=== PATIENT | female | born 1985 | race African-American/Black ===

== ENCOUNTER 2022-06-25 00:18 | Observation (INO) | payer OTHER, SELFPAY ==
--- NOTE | ~2022-06-25 | US_ITS ---
Pelvic ultrasound. Clinical History: Third trimester , evaluate for growth and amniotic fluid index Technique: Realtime transabdominal scanning of the pelvis was performed. Findings: The uterus is anteverted, and contains an intrauterine gestation. Biparietal diameter is 8. 8 cm. Head circumference is 30.5 cm. heart rate is 141 bpm. Abdominal circumference is 30.4 cm. Femur length is 6.9 cm. Amniotic fluid index is 8.5.. Neither ovary visualized. There is no evidence of free fluid in the cul de sac. Impression: Live intrauterine gestation with estimated gestational age of 34 weeks 6 days. CHRISTIANNE is 07/31/2022. heart rate is 141 bpm. Estimated weight is 2499 g. Amniotic fluid index is 8.5. Reviewed, dictated and finalized at [facility]. [employer] Impression: Live intrauterine gestation with estimated gestational age of 34 weeks 6 days. CHRISTIANNE is 07/31/2022. heart rate is 141 bpm. Estimated weight is 2499 g. Amniotic fluid index is 8.5.
[2022-06-25 00:39] VITALS: BP 136/80; PULSE 97; RESP 16; TEMP 36.3
--- NOTE | 2022-06-25 00:41 | PC.NURSE ---
Jo SEXTON notified Dr. Tomlin of PT coming in with c/o itching, orders to give Benadryl PO, CBC, CMP, and Bile acids.
[2022-06-25 00:45] VITALS: BP 131/73; PULSE 94
[2022-06-25 01:00] VITALS: BMI 34.9
[2022-06-25] MEDS: diphenhydrAMINE HCl CAP 25 MG CAPSULE PO (01:20)
--- NOTE | 2022-06-25 02:07 | OBADM ---
This patient, Williams Arvizu, admitted to the OB room OB Post 116 for observation. Patient/family oriented to hospital policies and general routines including ID bracelet, bed and alarms, visiting hours, pain management, procedures, bathroom and other care routines, personal items, smoking policy, room service/diet, and visiting hours. Patient/Family are encouraged to report perceived risks to care and to ask questions if they do not understand what they are told or what they should do.
[2022-06-25 02:35] LABS: Basophils Percent Auto 0.3 % (0.2-1.2); Eosinophils Absolute Auto 0.2 K/mm3 (0-0.3); Eosinophils Percent Auto 1.6 % (0-4.4); Hematocrit 34.5 % (37.0-47.0); Hemoglobin 11.1 g/dL (12.0-15.0); Immature Granulocyte Absolute 0.13 K/mm3 (0.00-0.031); Immature Granulocyte Percent A 1.2 % (0-0.5); Lymphocytes Absolute Auto 2.07 K/mm3 (0.9-3.2); Lymphocytes Percent Auto 19.8 % (18.3-44.2); Mean Corpuscular HGB Conc 32.2 g/dl (32-36); Mean Corpuscular Hemoglobin 29.1 pg (26-34); Mean Corpuscular Volume 90.3 fl (80-100); Mean Platelet Volume 11.2 fl (7.4-10.4); Monocytes Absolute Auto 1.2 K/mm3 (0.1-0.6); Monocytes Percent Auto 11.6 % (2.6-8.5); Neutrophils Absolute Auto 6.9 K/mm3 (1.3-6.7); Neutrophils Percent Auto 65.5 % (45.5-73.1); Platelet Count Result 263 k/mm3 (150-375); Red Blood Count 3.82 M/mm3 (4.2-5.4); White Blood Count 10.5 K/mm3 (4.5-10.0)
[2022-06-25 02:52] LABS: Anion Gap 5 mmol/L (8-16); Aspartate Amino Transferase 18 U/L (14-36); Bilirubin,Total 0.4 mg/dL (0.2-1.3); Blood Urea Nitrogen 10 mg/dL (7-17); Calcium 8.7 mg/dL (8.4-10.2); Carbon Dioxide 21 mmol/L (22-30); Chloride 105 mmol/L (98-107); Estimated CRCL calculation 76 ml/min; Estimated Glomerular Filt Rate > 60; Glucose 107 mg/dL (65-110); Potassium 3.8 mmol/L (3.4-5.0); Sodium 131 mmol/L (137-145)
[2022-06-25 02:53] LABS: Alanine Aminotransferase 15 U/L (6-35); Albumin Level 3.6 g/dL (3.5-5.1); Alkaline Phosphatase 81 U/L (38-126); Total Protein 6.6 g/dL (6.3-8.2)
[2022-06-25 03:05] VITALS: PULSE 103; O2SAT 100
--- NOTE | 2022-06-25 03:08 | PC.NURSE ---
RN called Dr. Tomlin, reported labs, vitals, 2 decelerations noted, PT requested tums. Orders to keep PT until morning, order ultrasound with growth and GIOVANNY. PT can receive Benadryl PRN.
[2022-06-25 03:10] VITALS: PULSE 96; O2SAT 98
[2022-06-25 03:15] VITALS: PULSE 100; O2SAT 99
[2022-06-25] MEDS: CALCIUM CARBONATE (TUMS) 500 MG (200 MG ELEMENTAL) PO (03:16)
[2022-06-25 04:02] VITALS: BP 124/63; PULSE 91; PULSE 96; RESP 18; TEMP 36.3; O2SAT 97
--- NOTE | 2022-06-25 07:54 | P.PNOB_ITS ---
OB - Triage/Final Diagnosis Visit Information Reason for evaluation: other (puritis) Comments/Additional reasons for admission: I have assessed the risk for this patient, Williams Arvizu, and determined that she would benefit from observation care. Evaluation Laboratory results: Laboratory Tests 06/25/22 06/25/22 00:50 00:51 WBC 10.5 H RBC 3.82 L Hgb 11.1 L Hct 34.5 L MCV 90.3 MCH 29.1 MCHC 32.2 RDW 15.0 H Plt Count 263 MPV 11.2 H Immature Gran % (Auto) 1.2 H Neut % (Auto) 65.5 Lymph % (Auto) 19.8 Bennett % (Auto) 11.6 H Eos % (Auto) 1.6 Baso % (Auto) 0.3 Lymph # (Auto) 2.07 Bennett # (Auto) 1.2 H Eos # (Auto) 0.2 Baso # (Auto) 0.0 Abs Immat Gran (auto) 0.13 H Absolute Neuts (auto) 6.9 H Absolute Nucleated RBC 0.0 Nucleated RBC % 0.0 Sodium 131 L Potassium 3.8 Chloride 105 Carbon Dioxide 21 L Anion Gap 5 L BUN 10 Creatinine 1.00 Estim Creat Clear Calc 76 Estimated GFR > 60 Glucose 107 Calcium 8.7 Total Bilirubin 0.4 AST 18 ALT 15 Alkaline Phosphatase 81 Total Protein 6.6 Albumin 3.6 Vital signs: Vital Signs - 24 hr 06/25/22 00:39 06/25/22 00:45 06/25/22 01:00 Temperature Pulse Rate 97 94 Respiratory Rate Blood Pressure 136/80 131/73 Pulse Oximetry Oxygen Delivery Room Air 06/25/22 00:39 06/25/22 03:05 06/25/22 03:10 Temperature 97.4 F L Pulse Rate Respiratory Rate 16 Blood Pressure Pulse Oximetry 100 98 Oxygen Delivery 06/25/22 03:15 06/25/22 04:02 06/25/22 04:02 Temperature 97.3 F L Pulse Rate 91 Respiratory Rate 18 Blood Pressure 124/63 Pulse Oximetry 99 97 Oxygen Delivery Comments: Patient with complaint of full body puritis improved with benadryl CBC and CMP ok, bile acids pending FHTs with 2 possible decels so u/s ordered for this am. If ok, plan dc home.
[2022-07-04 18:27] LABS: Chenodeoxycholic Acid <0.5 umol/L (< OR = 3.9); Cholic Acid <0.5 umol/L (< OR = 2.8); Deoxycholic Acid <0.5 umol/L (< OR = 2.3); Total Bile Acids <1.5 umol/L (< OR = 8.3)
== END 2022-06-25 08:30 | disposition home or self-care (01) ==
PROVIDERS: Admitting Provider Obstetrics & Gynecology Gynecology; Visit Provider Obstetrics & Gynecology Gynecology
DX: O26.893 Other specified pregnancy related conditions, third trimester (principal); Z3A.34 34 weeks gestation of pregnancy; L29.9 Pruritus, unspecified
CPT/HCPCS: 36415; 76816; 80053; 82542; 85025; A9270; G0378; G0379

== ENCOUNTER 2022-07-05 12:36 | Observation (INO) | payer OTHER, SELFPAY ==
[2022-07-05 13:20] VITALS: BMI 36.3
[2022-07-05 13:49] VITALS: BP 140/79; PULSE 99
[2022-07-05 14:00] VITALS: BP 117/70; PULSE 96
[2022-07-05 14:09] LABS: Alanine Aminotransferase 15 U/L (6-35); Albumin Level 3.5 g/dL (3.5-5.1); Alkaline Phosphatase 95 U/L (38-126); Anion Gap 7 mmol/L (8-16); Aspartate Amino Transferase 20 U/L (14-36); Bilirubin,Total 0.5 mg/dL (0.2-1.3); Blood Urea Nitrogen 10 mg/dL (7-17); Calcium 8.8 mg/dL (8.4-10.2); Carbon Dioxide 20 mmol/L (22-30); Chloride 109 mmol/L (98-107); Estimated CRCL calculation 77 ml/min; Estimated Glomerular Filt Rate > 60; Glucose 109 mg/dL (65-110); Potassium 3.7 mmol/L (3.4-5.0); Sodium 136 mmol/L (137-145)
[2022-07-05 14:15] VITALS: BP 126/74; PULSE 97
--- NOTE | 2022-07-05 14:27 | PM.OBTRLD ---
OB - Triage/Final Diagnosis Visit Information Reason for evaluation: other (itching) Comments/Additional reasons for admission: I have assessed the risk for this patient, Williams Arvizu, and determined that she would benefit from observation care. Evaluation Laboratory results: Laboratory Tests 07/05/22 13:43 Sodium 136 L Potassium 3.7 Chloride 109 H Carbon Dioxide 20 L Anion Gap 7 L BUN 10 Creatinine 1.00 Estim Creat Clear Calc 77 Estimated GFR > 60 Glucose 109 Calcium 8.8 Total Bilirubin 0.5 AST 20 ALT 15 Alkaline Phosphatase 95 Total Protein 7.0 Albumin 3.5 Vital signs: Vital Signs - 24 hr 07/05/22 13:49 07/05/22 14:00 07/05/22 14:15 Pulse Rate 99 96 97 Blood Pressure 140/79 117/70 126/74
[2022-07-05 14:29] VITALS: TEMP 36.6
--- NOTE | 2022-07-05 14:39 | PC.NURSE ---
1412--Tracing prior to now is reactive with FHT at 140 and occasional contractions.
== END 2022-07-05 15:00 | disposition home or self-care (01) ==
PROVIDERS: Admitting Provider Advanced Practice Midwife; Visit Provider Advanced Practice Midwife
DX: O26.893 Other specified pregnancy related conditions, third trimester (principal); L29.8 Other pruritus; Z3A.37 37 weeks gestation of pregnancy
CPT/HCPCS: 36415; 80053; G0378; G0379

== ENCOUNTER 2022-07-18 04:44 | Inpatient (IN) | payer OTHER, SELFPAY ==
[2022-07-18] VITALS (179 sets, daily range): BP systolic 73–181; BP diastolic 33–140; PULSE 77–150; RESP 16–18; TEMP 36.2–36.9; O2SAT 96–100; BMI 36.3
--- NOTE | ~2022-07-18 | US_ITS ---
EXAMINATION: US OB follow up w BPP DATE: 07/18/2022 09:30 INDICATION: Amniotic fluid index. Evaluate growth. Umbilical Doppler examination. TECHNIQUE: Real-time ultrasound of the pelvis was performed. The interpreting radiologist was not pre sent for the study. COMPARISON: Ultrasound dated 06/25/2022. FINDINGS: There is a single living fetus in vertex presentation. The placenta is fundal. cardiac activit y and movement are noted. heart rate is 157 beats per minute (bpm). The amniotic fluid in dex is 8.5 cm, which is normal. The following biometric data were obtained: BPD: 93 cm corresponds to gestational age 37 weeks 6 day(s). Head circumference: 330 cm corresponds to gestational age 37 weeks 3 day(s). Abdominal circumference: 339 cm corresponds to gestational age 37 weeks 6 day(s). Femur length: 71 cm corresponds to gestational age 36 weeks 4 day(s). Head circumference to abdominal circumference ratio: 0.97 (mean 0.91-1.05). Estimated weight: 3224 g plus or minus 484 g, 29.4%. Biophysical profile performed by the technologist: breathing (30 sec sustained breathing in 30 minutes): 0 out of 2 movement (3 gross body movements in 30 minutes: 2 out of 2 tone (one episode of mxbedoc-oxefwqhck-cnxlxhx limb movement): 2 out of 2 Amniotic fluid pocket (2 cm): 2 out of 2 Total score: 6 out of 8 Umbilical artery pulsed Doppler demonstrates peak systolic to end-diastolic velocity ratios (S/D rati os) of 2.3 (5th percentile = 1.87, 95th percentile = 2.98). IMPRESSION: 1. Single living fetus in vertex presentation with heart rate of 157 bpm. 2. Normal placenta. 3. Biophysical profile 6 out of 8. 4. Gestational age by ultrasound of 38 weeks 1 day(s) with ultrasound estimated date of delivery (CHRISTIANNE ) of 07/31/2022. 5. Normal umbilical Doppler ratios. Reviewed, dictated and finalized at location A. [employer] IMPRESSION: 1. Single living fetus in vertex presentation with heart rate of 157 bpm. 2. Normal placenta. 3. Biophysical profile 6 out of 8. 4. Gestational age by ultrasound of 38 weeks 1 day(s) with ultrasound estimated date of delivery (CHRISTIANNE) of 07/31/2022. 5. Normal umbilical Doppler ratios.
[2022-07-18 05:14] LABS: Basophils Percent Auto 0.3 % (0.2-1.2); Eosinophils Absolute Auto 0.1 K/mm3 (0-0.3); Eosinophils Percent Auto 0.9 % (0-4.4); Hematocrit 36.6 % (37.0-47.0); Immature Granulocyte Absolute 0.08 K/mm3 (0.00-0.031); Immature Granulocyte Percent A 0.8 % (0-0.5); Lymphocytes Absolute Auto 1.98 K/mm3 (0.9-3.2); Lymphocytes Percent Auto 20.7 % (18.3-44.2); Mean Corpuscular HGB Conc 32.8 g/dl (32-36); Mean Corpuscular Volume 88.4 fl (80-100); Mean Platelet Volume 11.2 fl (7.4-10.4); Monocytes Absolute Auto 0.8 K/mm3 (0.1-0.6); Monocytes Percent Auto 7.8 % (2.6-8.5); Neutrophils Absolute Auto 6.7 K/mm3 (1.3-6.7); Neutrophils Percent Auto 69.5 % (45.5-73.1); Platelet Count Result 232 k/mm3 (150-375); Red Blood Count 4.14 M/mm3 (4.2-5.4); Red Cell Distribution Width 14.5 % (11.5-14.5); White Blood Count 9.6 K/mm3 (4.5-10.0)
[2022-07-18] MEDS: LACTATED RINGERS 1,000 ML 125 ML IV CONT ×3 (05:47→13:10)
--- NOTE | 2022-07-18 08:12 | WPDOBADMIT ---
Obstetrics - Admit Note Admission Note: record reviewed. No pertinent additions to the history and/or any subsequent changes in the physical findings that are not consistent with the expected course of the were found. Additions to the history and/or subsequent changes in the physical findings follow. Called at 718 am regarding heart tracing. Initially reactive, then had 2 decels followed by prolonged tachycardia at 180's, now 160's with minimal variability. Patient was given a fluid bolus when tachycardia began. Recommend bedside ultrasound for BPP, GIOVANNY, dopplers, and growth. Patient informed.
--- NOTE | 2022-07-18 10:35 | WPDANESEPPF ---
Anes - Initial Pre Proc Eval Date/Time: 07/18/22 10:35 Surgeon: Marsha Tomlin MD Pre Op Diagnosis: IOL Patient Data Age: 37 Gender: F Height: 1.63 m Weight: 96 kg Last Vital Signs Temp 36.9 C 07/18/22 06:25 Pulse 90 07/18/22 09:46 BP 131/83 07/18/22 09:46 O2 Del Method Room Air 07/18/22 05:04 Allergies Allergy/AdvReac Type Severity Reaction Status Date / Time Penicillins Allergy Severe Hives Verified 07/18/22 05:02 Home Medications Medication Instructions Recorded Confirmed Type butalbital 50 mg-acetaminophen 300 1 cap PO Q4H PRN Headache 06/24/22 07/18/22 History mg capsule cholecalciferol (vitamin D3) 1,250 1,250 mcg PO WEEKLY 06/24/22 07/18/22 History mcg (50,000 unit) tablet ferrous sulfate 325 mg (65 mg 325 mg PO BID 06/24/22 07/18/22 History iron) tablet prenat.vits,hossein,axu-bruz-lhsfy 1 tablet PO DAILY 06/24/22 07/18/22 History diphenhydramine HCl 25 mg capsule 25 mg PO Q6H PRN Itching 06/25/22 07/18/22 Rx Laboratory Tests 07/18/22 07/18/22 07/18/22 05:09 05:09 05:09 WBC 9.6 K/mm3 K/mm3 (4.5-10.0) RBC 4.14 M/mm3 L M/mm3 (4.2-5.4) Hgb 12.0 g/dL g/dL (12.0-15.0) Hct 36.6 % L % (37.0-47.0) MCV 88.4 fl fl (80-100) MCH 29.0 pg pg (26-34) MCHC 32.8 g/dl g/dl (32-36) RDW 14.5 % % (11.5-14.5) Plt Count 232 k/mm3 k/mm3 (150-375) MPV 11.2 fl H fl (7.4-10.4) Immature Gran % (Auto) 0.8 % H % (0-0.5) Neut % (Auto) 69.5 % % (45.5-73.1) Lymph % (Auto) 20.7 % % (18.3-44.2) [place] % (Auto) 7.8 % % (2.6-8.5) Eos % (Auto) 0.9 % % (0-4.4) Baso % (Auto) 0.3 % % (0.2-1.2) Lymph # (Auto) 1.98 K/mm3 K/mm3 (0.9-3.2) [place] # (Auto) 0.8 K/mm3 H K/mm3 (0.1-0.6) Eos # (Auto) 0.1 K/mm3 K/mm3 (0-0.3) Baso # (Auto) 0.0 K/mm3 K/mm3 (0.0-0.1) Abs Immat Gran (auto) 0.08 K/mm3 H K/mm3 (0.00-0.031) Absolute Neuts (auto) 6.7 K/mm3 K/mm3 (1.3-6.7) Absolute Nucleated RBC 0.0 K/mm3 K/mm3 (0.0-0.012) Nucleated RBC % 0.0 % % (0.0-0.2) RPR Pending Blood Type A Positive Antibody Screen Negative Patient hx anesthesia problems: none Family hx anesthesia problems: none Results Review: All pre-operative results and documents have been reviewed as part of the pre-operative evaluation. [facility] Family History Family History (Updated 06/24/22 @ 15:43 by Caro Godfrey RN) Grandparent Breast cancer Social History Social History Smoking status: Never smoker Substance use: never Lack of Transportation: YES Lack of Food: Never True Current Housing: I Have Housing Concerned About Future Housing: No Difficulty Paying Gas/Electric Bills: No Difficulty Paying for Meds: No Currently Unemployed: No Education: Bachelor's Degree Difficulty w/ Childcare or Family Care: No Spiritual care concerns: No Anes - Eval Final PreProcedure Day of Procedure 07/18/22 10:35 Patient weight: obese Heart: regular rate and rhythm Lungs: clear to auscultation and normal air movement Airway: Mallampati scale class II Neurological: alert and oriented Last oral intake: >/= 8 hours ASA classification: II Emergent: no Anesthetic plan: proceed Anesthesia type and monitoring: regional epidural Results Review: All pre-operative results and documents have been reviewed as part of the pre-operative evaluation. Informed Consent: The patient's anesthetic plan and its attendant risks and benefits were discussed with the patient/family/POA. Questions were solicited and answers provided to the satisfaction of the patient/family/POA.
--- NOTE | 2022-07-18 13:07 | PM.OBPNLAB ---
Pain Control Date/time seen: 07/18/22 13:07 Comments: U/s with GIOVANNY 8.5, BPP 6/8 (-2 breathing), growth and dopplers ok will proceed with induction Pelvic Exam Dilation (cm): 3 Effacement (%): 70 station: -2 (POSTERIOR) Amniotic membrane status: Ruptured (AROM with clear fluid) Status Comments: FHTs 150's and good variability after u/s and before AROM
[2022-07-18] MEDS: OXYTOCIN 30 UNITS/NS 500 ML 30 UNITS/500 ML BAG IV CONT (13:10)
[2022-07-18] MEDS: OXYTOCIN 30 UNITS/NS 500 ML 30 UNITS/500 ML BAG 125 UNITS IV CONT (19:38)
--- NOTE | 2022-07-18 20:02 | PM.OBPRVD ---
OB - Delivery Note Procedure Delivery date: 07/18/22 Procedure: Induction method: AROM and Per Pitocin Protocol Delivery monitor: External FHT and Internal Uterine Route of delivery: Laceration Description: Perineal - 2nd Degree (very edematous and suture pulled though multiple times) Delivery repair: vicryl (3-0 vicryl) Specimen: Yes (placenta) Quantitative Blood Loss (ml): 200 Anesthesia type: Epidural Disposition: Floor Baby Date of : 07/18/22 Weeks of gestation at delivery: 39 gender: Female Weight (pounds): 6 Weight (ounces): 3 presentation: vertex position: Left Occiput Posterior Placenta delivery description: Spontaneous Cord Vessel Description: 3 Vessels score one minute: 8 score five minutes: 9
--- NOTE | 2022-07-18 20:04 | PM.OBDSVD ---
DS: Admitting Diagnosis Discharge Date 07/20/22 Admitting Diagnosis IUP 39 wks for LEX DS: Discharge Diagnosis Discharge Diagnosis (1) (normal spontaneous vaginal delivery): Code(s): O80 - Encounter for full-term uncomplicated delivery Status: Acute OB - DS: Summary OB Procedures : Ultrasound OB Procedures Intrapartum: Spontaneous Vag Delivery OB Procedures: : None Peripartum Data Infant Delivery Method: Natural Vaginal Laceration Description: Perineal - 2nd Degree complications: none Status at Discharge Functional status at discharge: independent ambulation Overall status at discharge: patient is progressing back to baseline Time Spent with Patient Time attestation: Total time spent providing and/or coordinating discharge services: DS: Data Data Completed and Pending Labs on day of discharge: Labs from last 24 hours 07/18/22 07/18/22 07/18/22 05:09 05:09 05:09 WBC 9.6 RBC 4.14 L Hgb 12.0 Hct 36.6 L MCV 88.4 MCH 29.0 MCHC 32.8 RDW 14.5 Plt Count 232 MPV 11.2 H Immature Gran % (Auto) 0.8 H Neut % (Auto) 69.5 Lymph % (Auto) 20.7 [place] % (Auto) 7.8 Eos % (Auto) 0.9 Baso % (Auto) 0.3 Lymph # (Auto) 1.98 [place] # (Auto) 0.8 H Eos # (Auto) 0.1 Baso # (Auto) 0.0 Abs Immat Gran (auto) 0.08 H Absolute Neuts (auto) 6.7 Absolute Nucleated RBC 0.0 Nucleated RBC % 0.0 RPR Pending Blood Type A Positive Antibody Screen Negative Discharge Plan Discharge Attending physician on discharge: Marsha Tomlin Discharging Clinician: Marsha Tomlin Anticipated Discharge Date/Time: 07/20/22 20:05 Patient Disposition: Home, Self-Care Activity: may shower, may drive after 2 weeks and pelvic rest Diet: regular Patient Instructions: Antibiotic Form Stand Alone Forms: General Discharge Information Follow-up/Referrals: Marsha Tomlin MD [Physician] - 6 Weeks Discharge Medications: Continued diphenhydramine HCl 25 mg Capsule 25 mg PO Q6H PRN (Reason: Itching) 0RF prenat.vits,hossein,cll-mbut-ptncq Tablet 1 tablet PO DAILY cholecalciferol (vitamin D3) 1,250 mcg (50,000 unit) Tablet 1,250 mcg PO WEEKLY butalbital-acetaminophen 50-300 mg Capsule 1 cap PO Q4H PRN (Reason: Headache) Discontinued ferrous sulfate 325 mg (65 mg iron) Tablet 325 mg PO BID Date of admission: 07/18/22 04:44 Primary Care Provider: UNKNOWN,DOCTOR Admitting Provider: Marsha Tomlin Attending physician on admission: Marsha Tomlin Condition: Stable Care Plan Goals: Plans Liletta IUD for control
[2022-07-18] MEDS: BENZOCAINE 20% AER SPR (*SP) 56 GM CAN 1 SPRAY TOPICAL (21:20)
[2022-07-18] MEDS: WITCH HAZEL 40 PADS 1 PAD TOPICAL (21:20)
[2022-07-18] MEDS: IBUPROFEN 600 MG TABLET PO (21:30)
[2022-07-18] MEDS: ACETAMINOPHEN 325 MG TABLET 650 MG PO (23:04)
[2022-07-19 04:00] VITALS: BP 128/73; PULSE 88; RESP 8; TEMP 36.7; O2SAT 98
[2022-07-19 04:59] LABS: Hematocrit 32.4 % (37.0-47.0); Hemoglobin 10.6 g/dL (12.0-15.0)
[2022-07-19] MEDS: MULTIVIT/MIN/PREN/FOL AC/IRON TABLET 1 TAB PO (07:10)
[2022-07-19] MEDS: IBUPROFEN 600 MG TABLET PO ×2 (07:10→14:55)
[2022-07-19] MEDS: DOCUSATE SODIUM 100 MG CAPSULE PO ×2 (07:10→16:16)
[2022-07-19 07:35] VITALS: BP 138/83; PULSE 93; RESP 16; TEMP 36.9; O2SAT 99
--- NOTE | 2022-07-19 08:30 | PM.OBPNVD ---
OB - PN: Subj Subjective Date/time seen: 07/19/22 08:30 Patient comments: no complaints and pain well controlled baby status: doing well OB - PN: Obj Data Labs 07/19/22 04:15 Labs: Laboratory Results - last 24 hr 07/19/22 04:15 Hgb 10.6 L Hct 32.4 L Imaging Radiologist's impression: Impressions Obstetrical Follow-Up 07/18/22 09:32 IMPRESSION: 1. Single living fetus in vertex presentation with heart rate of 157 bpm. 2. Normal placenta. 3. Biophysical profile 6 out of 8. 4. Gestational age by ultrasound of 38 weeks 1 day(s) with ultrasound estimated date of delivery (CHRISTIANNE) of 07/31/2022. 5. Normal umbilical Doppler ratios. OB - PN A/P Plan day: 1 Plan: routine care Time Spent With Patient Time: Total time spent is greater than 50% in coordination of care (as documented) at patient's floor/unit and/or counseling patient: Exam : Bimanual exam- vagina & uterus: other (Uterus firm, nt @U)
[2022-07-19 10:02] LABS: Rapid Plasma Reagin Non-Reactive (NonReactive)
[2022-07-19 11:56] VITALS: BP 129/80; PULSE 93; RESP 16; TEMP 36.8; O2SAT 99
--- NOTE | 2022-07-19 13:59 | WPDANLDPN2 ---
Anes-Prog Note L&D Date/Time: 07/19/22 13:59 Comfortable throughout: labor and delivery Neuraxial method: epidural Epidural/Spinal procedure site: clean & non-tender Neuro status: Neuro function grossly intact. Cardiovascular status: normal Respiratory status: normal Airway patency: baseline Mental status: baseline Post-Op hydration status: normal Vital Signs: Last Vital Signs Temp 36.8 C 07/19/22 11:56 Pulse 93 07/19/22 11:56 Resp 16 07/19/22 11:56 BP 129/80 07/19/22 11:56 Pulse Ox 99 07/19/22 11:56 O2 Del Method Room Air 07/18/22 23:30 Pain score (VAS): 06/08 I/O: Intake & Output 07/18/22 07/19/22 07/19/22 23:59 07:59 15:59 Intake Total 200 Output Total 210 Balance -210 200 Post-procedural complaints: none Patient feedback: Patient satisfied with anesthetic care.
[2022-07-19 16:00] VITALS: BP 126/75; PULSE 97; RESP 18; TEMP 36.6; O2SAT 100
--- NOTE | 2022-07-19 16:18 | PC.NURSE ---
[id number] Introductions were made, then consulted with patient to assess needs related to . Visitors are in the room and Mother led the conversation with her?plans to feed?her infant and the?experience so far. Mother states her first child is 16 and she didn't have success with at that time. Resources provided for inpatient and outpatient services with the feeding sheet and mom/baby guide. Mother voiced understanding of information and requests assistance since it has been about 3 hours since the start of the last session. Mother works well with her infant with encouragement and education. Encouraged understanding of the benefits of skin to skin (demonstrating unwrapping infant and placing upright on her chest), stimulating with massage touch, changing positions to encourage wakefulness, how to watch for early feeding cues, responsive feeding, feeding on demand (aiming for 8-12 times in 24 hours, about every 2-3 hours), milk production, building/maintaining a milk supply, duration of feeding, signs of adequate intake/output and how to record on the feeding sheet. Reviewed positioning and ear, shoulder, hip alignment, supporting the breast to facilitate a deep latch, asymmetrical latch (off-center), leading with the chin with a big, open, wide gape and body close to mother. latched optimally to the left breast in football position, then same position on the right breast, then back to the left. Encouraged mother to practice changing positions of her , stimulating and . Education given to mother of how to visualize suck/swallow ratios and listen for drinking at the breast. was able to maintain latch without discomfort to mother. Nipple care reviewed with optimal latch and good positioning. Reviewed the risks of early introduction of pacifiers, bottles and how to protect her milk supply since mother desires to breastfeed for 1 year. Reviewed good handwashing when or touching the breast/nipples to prevent infection. Resources used to facilitate learning were used with the tool, mom and baby guide. Mother voiced understanding of skin to skin, stimulating with massage touch, responsive feedings, hand expressed colostrum, talking to to encourage if it has been 2 -2.5 hours since the start of the last , to call if infant does not latch, or if there is discomfort with . Resources provided for inpatient/outpatient with the mom/baby guide. Mother voiced understanding of information, demonstrated learning and will call if there is a request for assistance. Reported to the primary RN.
--- NOTE | 2022-07-19 17:05 | PC.NURSE ---
Patient viewed the discharge video Mother & Baby Care, The First Two Weeks . Patient was given the opportunity and encouraged to ask questions. Patient verbalized understanding of information shared and has been given the mother/baby guide for home reference.
[2022-07-19 18:40] VITALS: BP 129/83; PULSE 76; RESP 15; TEMP 36.7; O2SAT 96
--- NOTE | 2022-07-20 07:41 | PM.OBPNVD ---
OB - PN: Subj Subjective Date/time seen: 07/20/22 07:41 Patient comments: no complaints and pain well controlled baby status: doing well and nursing well OB - PN: Obj Data Labs 07/19/22 04:15 Labs: Laboratory Results - last 24 hr 07/18/22 05:09 RPR Non-reactive OB - PN A/P Plan day: 2 Plan: routine care, discharge home, follow up 6 weeks and other (plans condoms until IUD placed) Time Spent With Patient Time: Total time spent is greater than 50% in coordination of care (as documented) at patient's floor/unit and/or counseling patient: Exam : Bimanual exam- vagina & uterus: other (Uterus firm, nt @U)
[2022-07-20] MEDS: MULTIVIT/MIN/PREN/FOL AC/IRON TABLET 1 TAB PO (08:20)
[2022-07-20] MEDS: IBUPROFEN 600 MG TABLET PO (08:20)
[2022-07-20] MEDS: DOCUSATE SODIUM 100 MG CAPSULE PO (08:20)
[2022-07-20 09:15] VITALS: BP 136/79; PULSE 89; RESP 16; TEMP 37.3; O2SAT 99
[2022-07-21 13:55] VITALS: BP 141/81; PULSE 83; RESP 16; TEMP 37.1; O2SAT 98
== END 2022-07-20 12:25 | disposition home or self-care (01) | DRG 807 ==
LOC: ANHLDR 20:06 → ANHOB2 22:58
PROVIDERS: Admitting Provider Obstetrics & Gynecology Gynecology; Visit Provider Obstetrics & Gynecology Gynecology
DX: O36.5930 Maternal care for other known or suspected poor fetal growth, third trimester, not applicable or unspecified (principal); Z37.0 Single live birth; O70.1 Second degree perineal laceration during delivery; O77.0 Labor and delivery complicated by meconium in amniotic fluid; O76 Abnormality in fetal heart rate and rhythm complicating labor and delivery; Z3A.39 39 weeks gestation of pregnancy
CPT/HCPCS: 36415; 76816; 76819; 85014; 85018; 85025; 86592; 86850; 86900; 86901; 88307; A9270; J2590; J2795; J7120